=== PATIENT | male | born 1945 | race Caucasian/White ===

== ENCOUNTER → 2018-10-13 12:40 | Outpatient (CLI) | payer MEDICARE, OTHER, SELFPAY ==
--- NOTE | 2018-10-13 | DI.CT.S_ITS ---
PROCEDURE: CT ABDOMEN PELVIS W CON INDICATIONS: Neoplasm of genitourinary organ TECHNIQUE: After the administration of oral and intravenous contrast, 5 mm thick sections acquired from the diaphragms to the symphysis. 5 mm thick coronal and sagittal reformats were performed. For radiation dose reduction, the following was used: automated exposure control, adjustment of mA and/or kV according to patient size. COMPARISON: None. FINDINGS: Image quality: Excellent. ABDOMEN: Lung bases: Lung bases are clear. Heart size is normal. Solid organs: Liver is normal in size and enhancement. Gallbladder appears normal. Biliary system is non-dilated. Pancreas enhances normally. Spleen is normal in size and enhancement. No adrenal nodules. Kidneys are normal in size and enhancement, without hydronephrosis. Peritoneum and bowel: Stomach, small bowel, and colon loops are normal in caliber and wall thickness. No free fluid or air. Nodes and vessels: No retroperitoneal or mesenteric adenopathy. Aorta and inferior vena cava are normal in caliber. Miscellaneous: No ventral hernias. PELVIS: Genitourinary: Bladder wall thickness is normal. Miscellaneous: No inguinal hernias or adenopathy. Bones: There are several sclerotic suspicious bony lesions the most worrisome of which is located within the left iliac bone at the middle third of the left sacroiliac joint, measuring up to 1.5 cm and densely sclerotic. This is best seen on series 2 image 60. Several additional less dense bone lesions are present elsewhere within the pelvis, nonspecific in appearance. No vertebral body compression fractures. IMPRESSION: No adenopathy seen. There is a dense sclerotic 1.5 cm bone lesion within the left iliac bone adjacent to the middle third of the left sacroiliac joint. By appearance this would be worrisome for representing prostate carcinoma metastasis and reactive sclerosis. Recommend nuclear medicine bone scan for further characterization. Dictated by: Homar Sifuentes M.D. on 10/13/2018 at 14:32 Approved by: Homar Sifuentes M.D. on 10/13/2018 at 14:36
== END ==
PROVIDERS: PCP Family Medicine; Visit Provider Urology
DX: D49.59 Neoplasm of unspecified behavior of other genitourinary organ (principal); M89.9 Disorder of bone, unspecified
CPT/HCPCS: 74177; Q9967

== ENCOUNTER → 2018-11-18 08:54 | Outpatient (CLI) | payer MEDICARE, OTHER, SELFPAY ==
--- NOTE | 2018-11-18 | DI.NM.S_ITS ---
PROCEDURE: NM BONE SCAN WHOLE BODY RADIOPHARMACEUTICAL: 21.5 mCi Tc-99m MDP IV. INDICATIONS: PROSTATE CANCER TECHNIQUE: Delayed whole-body scintigrams were obtained approximately 3-4 hours after intravenous injection of radiotracer. Anterior and posterior views were acquired from vertex to feet. Additional left and right oblique views of the pelvis were obtained. COMPARISON: [facility], CT, CT ABDOMEN PELVIS W CON, 10/13/2018, 13:46. FINDINGS: With reference to the prior CT scan in 10/13/[address] finding of ovoid sclerosis within the medullary space of the posterior left iliac bone, at the middle third of the sacroiliac joint axial level. This same area is well-visualized on posterior imaging from the bone scan study, and no corresponding asymmetry is identifiable. Degenerative lower lumbosacral spine and disc disease and facet osteoarthritis is greater on the left than the right by CT scanning and this corresponds with the mild asymmetric increased isotope uptake in the lower lumbosacral spine by the current bone scan. IMPRESSION: No definite metastatic disease is found by nuclear medicine bone scan imaging. As discussed above the degenerative changes at the lower lumbosacral spine are greater on the left than the right corresponding to the mild asymmetric increased isotope deposition in the area of the spine on bone scan. A sharply demarcated area of sclerosis within the posterior left iliac bone adjacent to the sacroiliac joint cannot be identified by bone scanning. This does not entirely exclude the possibility of osteoblastic metastatic disease at that site, however. Continued attention to that area on followup CT scan is recommended. If management would be altered by a definitive diagnosis of osseous metastatic disease CT-guided bone biopsy could be obtained into that area. Dictated by: Homar Sifuentes M.D. on 11/18/2018 at 14:54 Approved by: Homar Sifuentes M.D. on 11/18/2018 at 15:11
== END ==
PROVIDERS: PCP Family Medicine; Visit Provider Urology
DX: C61 Malignant neoplasm of prostate (principal); M47.817 Spondylosis without myelopathy or radiculopathy, lumbosacral region
CPT/HCPCS: 78306; A9503

== ENCOUNTER 2021-02-09 14:14 | Emergency (ER) | payer MEDICARE, OTHER, SELFPAY ==
[2021-02-09] VITALS (14 sets, daily range): BP systolic 120–152; BP diastolic 55–85; PULSE 103–125; RESP 25; TEMP 36.9–39.4; O2SAT 77–99; BMI 29.8
--- NOTE | 2021-02-09 14:45 | DI.RAD.S_ITS ---
PROCEDURE: XR CHEST 1V INDICATIONS: suspected sepsis TECHNIQUE: One view of the chest was acquired. COMPARISON: [facility], CR, XR CHEST 2 VIEWS, 10/05/2018, 10:58. FINDINGS: Surgical changes and devices: None. Lungs and pleura: An incomplete inspiratory result is noted, causing a crowded appearance to the lung markings. No focal infiltrates are seen. No pneumothorax or significant pleural effusions are seen. Mediastinum: Mediastinal contours appear normal. Heart size is normal. Bones and chest wall: No suspicious bony lesions. Age-appropriate bony degenerative changes are seen. Overlying soft tissues appear unremarkable. IMPRESSION: Limited portable chest examination, without a significant cardiopulmonary abnormality identified. If there is clinical concern for a developing pulmonary process, a short-term followup chest series (with PA and lateral views, performed in deep inspiration) is suggested for further evaluation. Dictated by: Chrales Gonzales M.D. on 02/09/2021 at 14:34 Approved by: Charles Gonzales M.D. on 02/09/2021 at 14:34
[2021-02-09] MEDS: SODIUM CHLORIDE 0.9% 1,000 ML 1000 ML IV (15:12)
[2021-02-09 15:31] LABS: Add Manual Diff / Slide Review NO; Basophils Absolute Auto 0 /uL (0-100); Basophils Percent Auto 0.1 % (0-2); Eosinophils Absolute Auto 0 /uL (0-450); Hematocrit 45.7 % (41-53); Hemoglobin 15.4 g/dL (13.5-17.5); Lymphocytes Absolute Auto 500 /uL (1100-4500); Lymphocytes Percent Auto 3.3 % (25-40); Mean Corpuscular HGB Conc 33.7 % (30-36); Mean Corpuscular Hemoglobin 29.1 PG (26-34); Mean Corpuscular Volume 86.5 fL (80-100); Monocytes Absolute Auto 1200 /uL (0-900); Monocytes Percent Auto 8.1 % (3-14); Neutrophils Absolute Auto 12700 /uL (1500-7000); Neutrophils Percent Auto 88.5 % (50-75); Platelet Count 223 X10^3/uL (150-400); Red Blood Cell Count 5.29 X10^6/uL (4.5-5.9); Red Cell Distribution Width 12.9 % (11.6-14.8); White Blood Cell Count 14.3 X10^3/uL (4.5-11.0)
[2021-02-09 15:36] LABS: Lactate (Lactic Acid) 1.3 mmol/L (0.7-2.1)
[2021-02-09 15:38] LABS: Alanine Aminotransferase 18 IU/L (<50); Albumin 4.7 g/dL (3.5-5.0); Albumin Globulin Ratio 1.6 (1.0-2.8); Alkaline Phosphatase 77 U/L (38-126); Aspartate Aminotransferase 21 IU/L (17-59); BUN Creatinine Ratio 12.7 (6-22); Bilirubin Total 1.3 mg/dL (0.2-1.3); Blood Urea Nitrogen 10 mg/dL (9-20); Calcium 8.8 mg/dL (8.4-10.2); Carbon Dioxide 28 mmol/L (22-32); Chloride 99 mmol/L (98-107); Estimated Glomerular Filt Rate > 60.0 mL/min (>60); Glucose 135 mg/dL (80-110); HEMOLYSIS < 15 (0-50); Lipase 39 U/L (23-300); Potassium 3.9 mmol/L (3.4-5.1); Sodium 134 mmol/L (137-145); Total Protein 7.7 g/dL (6.3-8.2)
[2021-02-09 15:40] LABS: COVID19 -Nasal RAPID Negative (Negative)
[2021-02-09 15:54] LABS: Procalcitonin 0.12 ng/mL (<0.5)
--- NOTE | 2021-02-09 16:32 | ED.GENADULT ---
HPI - General Adult General Chief complaint: Fever Stated complaint: Possible shingles on his face Time Seen by Provider: 02/09/21 16:32 Source: patient Mode of arrival: Family Vehicle History of Present Illness HPI narrative: 75-year-old gentleman with a history of hyperlipidemia presents with facial rash and general malaise. He noted that the rash started on his left cheek approximately 72 hours ago has now spread to include both cheeks and is spreading over his nose up into the lower portion of his forehead. Has some minor edema around the eyes he does not report significant fevers, nasal discharge, headache, body aches, chills, vomiting, diarrhea, abdominaPain, palpitations, lower extremity edema. He has not been dizzy nor had any near syncopal episodes. There is no altered mental status Related Data Home Medications Medication Instructions Recorded Confirmed ibuprofen 200 mg capsule 200 mg PO PRN #0 03/10/11 Previous Rx's Medication Instructions Recorded alprazolam 0.25 mg tablet 0 mg PO QDAY #6 tab 12/31/15 atorvastatin 20 mg tablet (Lipitor) 20 mg PO HS #90 tab 05/09/16 azithromycin 250 mg tablet 250 mg PO QDAY #1 pac 05/20/16 (Zithromax) sildenafil (pulm.hypertension) 20 20 mg PO PRN #100 tab 10/31/16 mg tablet cephalexin 500 mg capsule 500 mg PO TID #21 cap 02/09/21 Allergies Allergy/AdvReac Type Severity Reaction Status Date / Time No Known Drug Allergies Allergy Verified 02/09/21 14:44 Review of Systems Review of Systems Narrative: Remainder of complete review of systems is otherwise unremarkable except for that included in the HPI. Patient History Medical History Chicken pox Hearing loss (2009) Measles Mumps Rotator cuff tear, left (01/09/16) Rupture of left long head biceps tendon (01/09/16) Shoulder pain (2011) Subacromial impingement of left shoulder (01/09/16) Surgical History No history of previous surgery (05/04/15) Social History Smoking Status: Never smoker Smoking Status: Never smoker alcohol intake frequency: 0-2 drinks per day Alcohol type: wine Substance Use Type: does not use Exam Narrative Exam Narrative: General: Healthy appearing, in no acute distress. Able to give a complete and coherent history. Well-nourished well-developed HEENT: Moist mucous membranes, normal sclera with reactive pupils, erythematous rash covering the majority of his cheeks nose and spreading up to the forehead consistent with erysipelas. No vesicles, no weeping no obvious abscesses. No periorbital involvement Neck: No JVD, supple, full minor anterior cervical adenopathy Respiratory: Lungs are clear to auscultation, no wheezing no rales no rhonchi. Full and symmetrical air movement Cardiac: Regular rate and rhythm no murmurs no bruits Abdomen: Soft, nontender, good bowel tones, no flank pain Skin: Aside from facial rash remainder of skin is otherwise Warm and dry, Neurologic: Grossly neurologically intact with no obvious asymmetries or abnormalities Extremities: No trauma, well perfused Psych: Cooperative, appropriate insight and affect Initial Vital Signs Initial Vital Signs: Vital Signs Temperature 102.9 F H 02/09/21 14:34 Pulse Rate 125 H 02/09/21 14:34 Respiratory Rate 25 H 02/09/21 14:34 Blood Pressure 135/72 02/09/21 14:34 Pulse Oximetry 97 02/09/21 14:34 Course Orders Ordered: Discontinued Medications Acetaminophen (Acetaminophen 325 Mg Tablet) 975 mg PO NOW ONE Stop: 02/09/21 16:14 Last Admin: 02/09/21 16:34 Dose: 975 mg Documented by: BRENDAN Cefazolin Sodium (Cephalexin 250 Mg Prepack) 1 bottle MISC SEEINSTR ONE Stop: 02/09/21 16:36 Last Admin: 02/09/21 16:42 Dose: 1 bottle Documented by: BRENDAN Sodium Chloride (Normal Saline 0.9%) 1,000 mls @ 1,000 mls/hr IV BOLUS ONE Stop: 02/09/21 15:44 Last Infusion: 02/09/21 16:34 Dose: 0 mls/hr Documented by: Admin: 02/09/21 15:12 Dose: 1,000 mls/hr Documented by: BRENDAN Ceftriaxone Sodium 2,000 mg/ (Sodium Chloride) 100 mls @ 200 mls/hr IV NOW ONE Stop: 02/09/21 16:36 Last Infusion: 02/09/21 17:15 Dose: 0 mls/hr Documented by: Admin: 02/09/21 16:42 Dose: 200 mls/hr Documented by: BRENDAN Vital Signs Vital signs: Vital Signs - 8 hr 02/09/21 14:34 02/09/21 15:07 02/09/21 15:09 Temperature 102.9 F H Pulse Rate 125 H 118 H 108 H Respiratory Rate 25 H Blood Pressure 135/72 122/74 Pulse Oximetry 97 94 98 02/09/21 15:15 02/09/21 15:30 02/09/21 15:45 Temperature 102.9 F H Pulse Rate 106 H 104 H 103 H Respiratory Rate Blood Pressure 131/85 Pulse Oximetry 98 97 99 02/09/21 16:00 Temperature Pulse Rate 110 H Respiratory Rate Blood Pressure 136/80 Pulse Oximetry 77 L Medical Decision Making Lab Data Result diagrams: 02/09/21 15:08 02/09/21 15:08 Labs: Lab Results 02/09/21 02/09/21 02/09/21 Range/Units 14:45 15:08 15:08 WBC 14.3 H (4.5-11.0) X10^3/uL RBC 5.29 (4.5-5.9) X10^6/uL Hgb 15.4 (13.5-17.5) g/dL Hct 45.7 (41-53) % MCV 86.5 (80-100) fL MCH 29.1 (26-34) PG MCHC 33.7 (30-36) % RDW 12.9 (11.6-14.8) % Plt Count 223 (150-400) X10^3/uL Neut % (Auto) 88.5 H (50-75) % Lymph % (Auto) 3.3 L (25-40) % Gilchrist % (Auto) 8.1 (3-14) % Eos % (Auto) 0.0 L (2-4) % Baso % (Auto) 0.1 (0-2) % Neut # (Auto) 56321 H (9676-6400) /uL Lymph # (Auto) 500 L (6628-6122) /uL Gilchrist # (Auto) 1200 H (0-900) /uL Eos # (Auto) 0 (0-450) /uL Baso # (Auto) 0 (0-100) /uL Sodium 134 L (137-145) mmol/L Potassium 3.9 (3.4-5.1) mmol/L Chloride 99 (98-107) mmol/L Carbon Dioxide 28 (22-32) mmol/L BUN 10 (9-20) mg/dL Creatinine 0.79 (0.66-1.25) mg/dL Estimated GFR > 60.0 (>60) mL/min BUN/Creatinine Ratio 12.7 (6-22) Glucose 135 H (80-110) mg/dL Lactate (0.7-2.1) mmol/L Calcium 8.8 (8.4-10.2) mg/dL Total Bilirubin 1.3 (0.2-1.3) mg/dL AST 21 (17-59) IU/L ALT 18 (<50) IU/L Alkaline Phosphatase 77 (38-126) U/L Total Protein 7.7 (6.3-8.2) g/dL Albumin 4.7 (3.5-5.0) g/dL Globulin 3.0 (1.7-4.1) g/dL Albumin/Globulin Ratio 1.6 (1.0-2.8) Lipase 39 (23-300) U/L Procalcitonin 0.12 (<0.5) ng/mL SARS-CoV-2 (PCR) Negative (Negative) 02/09/21 Range/Units 15:08 WBC (4.5-11.0) X10^3/uL RBC (4.5-5.9) X10^6/uL Hgb (13.5-17.5) g/dL Hct (41-53) % MCV (80-100) fL MCH (26-34) PG MCHC (30-36) % RDW (11.6-14.8) % Plt Count (150-400) X10^3/uL Neut % (Auto) (50-75) % Lymph % (Auto) (25-40) % Gilchrist % (Auto) (3-14) % Eos % (Auto) (2-4) % Baso % (Auto) (0-2) % Neut # (Auto) (0660-5815) /uL Lymph # (Auto) (3353-1738) /uL Gilchrist # (Auto) (0-900) /uL Eos # (Auto) (0-450) /uL Baso # (Auto) (0-100) /uL Sodium (137-145) mmol/L Potassium (3.4-5.1) mmol/L Chloride (98-107) mmol/L Carbon Dioxide (22-32) mmol/L BUN (9-20) mg/dL Creatinine (0.66-1.25) mg/dL Estimated GFR (>60) mL/min BUN/Creatinine Ratio (6-22) Glucose (80-110) mg/dL Lactate 1.3 (0.7-2.1) mmol/L Calcium (8.4-10.2) mg/dL Total Bilirubin (0.2-1.3) mg/dL AST (17-59) IU/L ALT (<50) IU/L Alkaline Phosphatase (38-126) U/L Total Protein (6.3-8.2) g/dL Albumin (3.5-5.0) g/dL Globulin (1.7-4.1) g/dL Albumin/Globulin Ratio (1.0-2.8) Lipase (23-300) U/L Procalcitonin (<0.5) ng/mL SARS-CoV-2 (PCR) (Negative) Imaging Data Chest x-ray: Radiologist's Impression: FINDINGS:? ? Surgical changes and devices:? None.? ? Lungs and pleura:? An incomplete inspiratory result is noted, causing a crowded appearance to the lung markings.? No focal infiltrates are seen.? No pneumothorax or significant pleural effusions are seen. ? ? Mediastinum:? Mediastinal contours appear normal.? Heart size is normal.? ? Bones and chest wall:? No suspicious bony lesions.? Age-appropriate bony degenerative changes are seen.? Overlying soft tissues appear unremarkable.? ? ? IMPRESSION:? ? Limited portable chest examination, without a significant cardiopulmonary abnormality identified.? ? If there is clinical concern for a developing pulmonary process, a short-term followup chest series (with PA and lateral views, performed in deep inspiration) is suggested for further evaluation. ? ? Dictated by: Charles Gonzales M.D. on 02/09/2021 at 14:34 ? ? MDM Narrative Medical decision making narrative: 75-year-old gentleman today presents with facial rash absolute consistent with erysipelas. There is no sign of abscess, deeper tissue infection or periorbital involvement. No evidence of sepsis. Given 2 g of IV ceftriaxone in the emergency department a prescription for cephalexin to begin tomorrow. Because he will be returning to [facility] and what have access to pharmacy he is given a pre packed to provide him at 12:00 p.m. bridge until antibiotics are available. Anticipatory guidance regarding resolution of symptoms and anticipated course of illness are reviewed with both he and his . Questions are answered and he is safe for home discharge Discharge Plan Departure Patient Disposition: Home Clinical Impression: Erysipelas Instructions: DI for Erysipelas Activity Restrictions/Additional Instructions: Thank you for coming in today The infection affecting her face should resolve nicely with antibiotics. The blood work done in the emergency department suggest that you do not have overwhelming infection or sepsis. This is not shingles/zoster. Your given a dose of antibiotics starting at 4:30 in the afternoon, 2 g of IV ceftriaxone. You need to continue 500 mg of cephalexin 3 times a day. Please take 2 of the 250 mg pills around noon tomorrow, and another 2 at bedtime. 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 If you find that you are getting worse please return to the ER and we are happy to help Prescriptions: New cephalexin 500 mg capsule 500 mg PO TID Qty: 21 0RF No Action ibuprofen 200 MG capsule 200 mg PO PRN Qty: 0 0RF alprazolam 0.25 MG tablet 0 mg PO QDAY Qty: 6 0RF atorvastatin [Lipitor] 20 MG tablet 20 mg PO HS Qty: 90 1RF azithromycin [Zithromax] 250 MG tablet 250 mg PO QDAY Qty: 1 0RF sildenafil (pulm.hypertension) 20 MG tablet 20 mg PO PRN Qty: 100 0RF Referrals: Prince Padgett MD [Primary Care Provider] -
[2021-02-09] MEDS: ACETAMINOPHEN 325 MG TABLET 975 MG PO (16:34)
[2021-02-09] MEDS: cefTRIAXone 2,000 MG in SODIUM CHLORIDE 0.9% 100 ML 200 ML IV (16:42)
[2021-02-09] MEDS: cephALEXin 250 MG PREPACK 1 BOTTLE MISC (16:42)
== END 2021-02-09 17:18 | disposition home or self-care (01) ==
PROVIDERS: Emergency Provider Emergency Medicine; PCP Family Medicine
DX: A46 Erysipelas (principal); Z20.822 Contact with and (suspected) exposure to COVID-19
CPT/HCPCS: 36415; 71045; 80053; 83605; 83690; 84145; 85025; 87040; 87635; 96361; 96365; 99284; C9803; J0696

== ENCOUNTER 2021-03-27 12:41 | Day surgery (SDC) | payer MEDICARE, OTHER, SELFPAY ==
--- NOTE | 2021-03-26 19:11 | PM.PREOP ---
Pre-operative Note COVID-19 COVID-19 status: Negative Criteria for continued procedure: Expected advancement of disease process, Possibility delay results in more complex future surgery or treatment, Increased loss of function, Delay expected to result in less-positive ultimate med/surg outcome and Non-surgical alternatives not available or appropriate per current SOC Interval Note History & Physical reviewed/Exam performed by Physician: Yes Changes to H&P: No
--- NOTE | 2021-03-27 08:27 | PM.OP.1 ---
Operative Date/Time/Diagnoses Date of procedure: 03/27/21 Time of procedure: 14:15 Procedure & Clinicians Procedure: Preoperative diagnoses: 1. Significant right cortical and Nuclear sclerotic cataract 2. Astigmatism which is to be corrected with a toric intraocular lens implant. 3. Previous excision of large pterygium multiple times 4. Risk of dry eye syndrome 5. History of prostate cancer removed with surgery denies Flomax or similar medications. Postoperative diagnoses: 1. Right Cataract removal with phacoemulsification with toric posterior chamber intraocular lens implant placed. Procedure: Phacoemulsification with posterior chamber toric intraocular lens implant. Surgeon: Donna Batres MD Complications: None Specimen: None Implant: [id number] Calvin 179 Blood loss: None Anesthesia: Retrobulbar with monitored standby Description of procedure: Patient presents with a complaint of decreased vision due to cataract which is affecting activities of daily living especially night driving. The patient wants surgery to improve vision and astigmatism. He has a large amount of astigmatism residual to previous multiple treatments for pterygia. He also now has significant glare causing him burst and halos with driving and reading. patient understands the extra risk of surgery during the COVID-19 epidemic and wishes to proceed. The patient has tested negative for active virus within 72 hours of the procedure. His pupil does not dilate extremely well and is possible that he has had of prostatic sympathomimetic drugs in the past without his knowledge. 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 The patient was taken to the operating room and proparacaine drops placed. Indelible ink dowling were placed at the 90 and 180 degree meridian. The patient was placed on the operating room table and given IV sedation. A retrobulbar block insert consisting of 6 cc of 2% xylocaine without epinephrine mixed half and half with 0.5% Marcaine with 1 cc of hyaluronidase added is placed between the medial and lateral 1/3 of the inferior orbital rim. The eye is manually massaged for 30 sec, prepped using Betadine solution, and draped in the usual sterile fashion. Temporal approach was made, a 1 mm side-port incision was made 90? from the proposed corneal wound. Phenylephrine 1.5% mixed with 1% xylocaine 0.2 cc was placed into the anterior chamber. This was allowed to work for 1 minute to improve pupillary dilation and tone. An air bubble was then placed in vision blue dye was placed in the anterior chamber to lightly paint the anterior capsule. followed by Healon was then placed. A 2.6 mm clear incision with a 2.6 mm blade was placed at the 170 degree meridian. A 360 degree capsulorrhexis style capsulotomy was then performed with a cystitome needle on a Healon greatly aided by the capsular dye. Hydrodelineation and hydrodissection were performed. The phacoemulsification unit is introduced, and sculpting used to groove the central lens. It is then removed in chopping mode. Epi nucleus is removed with epinuclear mode and irrigation aspiration was used to remove the peripheral cortex. The posterior capsule is polished. The intraocular lens is selected, inspected, power confirmed, and placed in the posterior chamber at the desired meridian of 179?. The pupil was not constricted. The wound was stromally hydrated and tested for leaks, there was none and it was left sutureless. Vigamox 0.1 cc was placed into the anterior chamber. Kenalog 0.2 cc was placed in the superior subconjunctival space. A drop of antibiotic and was placed and the eye was patched and shielded. The patient was stable and returned to the recovery room in excellent condition. Dictated by: Donna Batres MD Copy to: [facility] Same procedure as scheduled: Yes
[2021-03-27] MEDS: PROPARACAINE 0.5% OPHTH SOL 2 DROPS EYE-OP (13:04)
[2021-03-27] MEDS: CATARACT EYE COMPOUND (10 DROPS/SYRINGE) 3 DROPS EYE-OP (13:05)
[2021-03-27 13:07] VITALS: BP 127/81; PULSE 98; RESP 18; TEMP 36.6; O2SAT 98; BMI 29.5
--- NOTE | 2021-03-27 13:28 | SUR.OPER ---
Supine on eye stretcher, head on extension cradle secured with tape. Arms tucked at sides with blanket. Pillow under knees.
--- NOTE | 2021-03-27 14:32 | SUR.OPER ---
RIGHT EAR HEARING AID REMOVED, PLACED IN LABELED CUP AND TRANSFERRED TO [facility] WITH PATIENT
[2021-03-27] MEDS: PHENYLEPHRINE/LIDOCAINE VIAL (OR) 0.2 ML EYE-OP (14:34)
[2021-03-27] MEDS: MOXIFLOXACIN INJ 4 MG/0.8 ML VIAL 0.5 MG EYE-OP (14:34)
[2021-03-27] MEDS: HYALURONATE SODIUM 30 MG-10 MG/ML SYRINGES 1 BOX INTRAOCULA (14:34)
[2021-03-27] MEDS: LIDOCAINE 2% 4 ML, BUPIVACAINE 0.5% (PF) 4 ML, HYALURONIDASE 150 UNIT INJ (14:36)
[2021-03-27] MEDS: TRIAMCINOLONE 50 MG/5 ML VIAL INJ (14:36)
[2021-03-27] MEDS: BALANCED SALT IRRIG SOLN NO.2 500 ML, EPINEPHrine 1 MG IRR (14:37)
[2021-03-27] MEDS: TRYPAN BLUE 0.5 ML SYRINGE INJ (14:38)
[2021-03-27] MEDS: ERYTHROMYCIN OPHTH 1 GM OINT 1 APPLIC EYE-RIGHT (14:38)
[2021-03-27 15:00] VITALS: BP 118/75; PULSE 80; RESP 16; TEMP 36.3; O2SAT 96
--- NOTE | 2021-03-27 15:06 | SUR.PHASEII ---
Message left with for transport. She is in [place] for an appointment. Patient states I'm fine, I'll just sit here and drink coffee.
[2021-03-27 15:37] VITALS: BP 118/73; PULSE 80; RESP 16; TEMP 36.5; O2SAT 97
== END 2021-03-27 15:46 | disposition home or self-care (01) ==
LOC: OR 12:43
PROVIDERS: PCP Family Medicine; Referring Provider Ophthalmology; Visit Provider Ophthalmology
PROC: (CPT 66984; principal; 2021-03-27 14:15)
DX: H25.811 Combined forms of age-related cataract, right eye (principal); H52.201 Unspecified astigmatism, right eye
CPT/HCPCS: 66984; J0171; J2250; J3301; J3470; V2787

== ENCOUNTER 2021-04-22 11:44 | Day surgery (SDC) | payer MEDICARE, OTHER, SELFPAY ==
--- NOTE | 2021-04-09 19:12 | PM.PREOP ---
Pre-operative Note COVID-19 COVID-19 status: Negative Criteria for continued procedure: Expected advancement of disease process, Possibility delay results in more complex future surgery or treatment, Increased loss of function, Delay expected to result in less-positive ultimate med/surg outcome and Non-surgical alternatives not available or appropriate per current SOC Interval Note History & Physical reviewed/Exam performed by Physician: Yes Changes to H&P: Yes H&P completed within 30 days and has changed as indicated here:: Patient was diagnosed last week with atrial fibrillation and had his carpal tunnel surgery which was planned postponed. He has no symptoms and is due to start a short course of Eliquis tomorrow and see cardiology in 1-2 weeks. His primary care so he could continue with surgery as planned.
--- NOTE | 2021-04-10 08:13 | P.OP_ITS ---
Operative Date/Time/Diagnoses Date of procedure: 04/22/21 Time of procedure: 13:15 Procedure & Clinicians Procedure: Preoperative diagnoses: 1. Left nuclear sclerotic and cortical cataract. 2. History of extensive pterygium removal 3. 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 Newly diagnosed atrial fibrillation without symptoms. Postoperative diagnoses: 1. Cataract removed by phacoemulsification with placement of posterior chamber intraocular lens. Procedure: Phacoemulsification with posterior chamber intraocular lens implant Surgeon: Donna Batres MD Complications: None Specimen: None Implant: DIBOO+25.0 Blood loss: None Anesthesia: Retrobulbar with monitored standby Description of procedure: Patient presents with a complaint of decreased vision due to cataract which is affecting activities of daily living with problems with night driving. He has had significant pterygium removal but does not have significant astigmatism in this eye. He is extra risk of dry eye syndrome. He is in balance since his risk cataract surgery which is causing risk of falling and wants to proceed cataract surgery in this eye as soon as possible. He was originally scheduled for cataract surgery April but due to the unavailability of needed intraoperative medications the case was postponed until today. These medications are now available and he is eager to proceeed..he patient wants surgery to improve vision. The patient understands the extra risk of surgery during the COVID-19 epidemic and wishes to proceed. He has tested negative for active virus within 72 hours of the procedure. He did have a tendency for floppy iris his last surgery and extra precautions will be taken. The patient was taken to the operating room and given IV sedation. A retrobulbar block consisting of 6 cc of 2% xylocaine without epinephrine mixed half and half with 0.5% Marcaine with 1 cc of hyaluronidase added is placed between the medial and lateral 1/3 of the inferior orbital rim. The eye is manually massaged for 30 sec, prepped using Betadine solution, and draped in the usual sterile fashion. Temporal approach was made, a 1 mm side-port incision was made 90? from the proposed clear corneal incision position. Phenylephrine 1.5% mixed with 1% xy locaine 0.2 cc was placed into the anterior chamber. To improve visibility an air bubble was placed followed by vision blue dye to paint the posterior capsule. The excess dye was then removed with BSS by Healon was then placed. A 2.6 mm clear incision with a 2.6 mm blade was placed. A 360 degree capsulorrhexis style capsulotomy was then performed with a cystitome needle on a Healon aided by the capsular dye Hydrodelineation and hydrodissection were performed. The phacoemulsification unit is introduced, and sculpting notice used to groove the central lens. It is then removed in chopping mode. Epi nucleus is removed with epinuclear mode and irrigation aspiration was used to remove the peripheral cortex. The posterior capsule is polished. The iris had a tendency to prolapse that stayed in position. intraocular lens is selected, inspected, power confirmed, and placed in the posterior chamber. The wound was stromally hydrated and tested for leaks, there was none and it was left sutureless. Intracameral moxifloxacin 0.1 cc was placed into the anterior chamber. Kenalog 0.2 cc was placed in the superior subconjunctival space. A drop of antibiotic and was placed and the eye was patched and shielded. The patient was stable and returned to the recovery room in excellent condition. He was noted to be in atrial fibrillation throughout the case and a strip was given to him as he is about to undergo treatment for this new condition. He remained asymptomatic during the entire procedure with a heart rate in the 80s. He will start Eliquis tomorrow morning. Dictated by: Donna Batres MD Copy to: [facility] Same procedure as scheduled: Yes
--- NOTE | 2021-04-10 11:17 | SUR.PREOP ---
Patient surgery cancelled. Pt called in informed. Dr Batres's office to call to reschedule.
[2021-04-22] MEDS: CATARACT EYE COMPOUND (10 DROPS/SYRINGE) 3 DROPS EYE-OP (12:00)
[2021-04-22] MEDS: PROPARACAINE 0.5% OPHTH SOL 2 DROPS EYE-OP (12:00)
[2021-04-22 12:07] VITALS: BP 137/82; PULSE 80; RESP 18; TEMP 36.2; O2SAT 997
[2021-04-22 12:55] LABS: COVID19 -Nasal RAPID Negative (Negative)
[2021-04-22] MEDS: MOXIFLOXACIN INJ 4 MG/0.8 ML VIAL 0.5 MG EYE-OP (14:08)
[2021-04-22] MEDS: HYALURONATE SODIUM 30 MG-10 MG/ML SYRINGES 1 BOX INTRAOCULA (14:08)
[2021-04-22] MEDS: ERYTHROMYCIN OPHTH 1 GM OINT 1 APPLIC EYE-LEFT (14:08)
[2021-04-22] MEDS: TRIAMCINOLONE 50 MG/5 ML VIAL INJ (14:10)
[2021-04-22] MEDS: PHENYLEPHRINE/LIDOCAINE VIAL (OR) 0.2 ML EYE-OP (14:10)
[2021-04-22] MEDS: TRYPAN BLUE 0.5 ML SYRINGE INJ (14:11)
[2021-04-22] MEDS: LIDOCAINE 2% 4 ML, BUPIVACAINE 0.5% (PF) 4 ML, HYALURONIDASE 150 UNIT INJ (14:11)
[2021-04-22] MEDS: BALANCED SALT IRRIG SOLN NO.2 500 ML, EPINEPHrine 1 MG IRR (14:11)
[2021-04-22 14:42] VITALS: BP 124/84; PULSE 78; RESP 16; TEMP 36.3; O2SAT 97
== END 2021-04-22 15:01 | disposition home or self-care (01) ==
LOC: OR 11:46
PROVIDERS: PCP Nurse Practitioner Family; Referring Provider Ophthalmology; Visit Provider Ophthalmology
PROC: (CPT 66984; principal; 2021-04-22 13:15)
DX: H25.812 Combined forms of age-related cataract, left eye (principal); Z20.822 Contact with and (suspected) exposure to COVID-19
CPT/HCPCS: 66984; 87635; J0171; J2250; J2704; J3301; J3470

== ENCOUNTER 2024-08-31 07:34 | Emergency (ER) | payer MEDICARE, OTHER, SELFPAY ==
[2024-08-31] VITALS (23 sets, daily range): BP systolic 112–153; BP diastolic 60–88; PULSE 54–77; RESP 14–27; TEMP 36.8; O2SAT 94–99; BMI 30.8
--- NOTE | 2024-08-31 07:47 | EKG_ITS ---
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
--- NOTE | 2024-08-31 08:07 | DI.CT.S_ITS ---
PROCEDURE: CT ANGIO HEAD AND NECK INDICATIONS: tia TECHNIQUE: After the administration of intravenous contrast, 1 mm thick sections acquired from the aortic arch through the [place] of [place]. 3-dimensional cbtfsom-oxxdedkop-ewpfumaqse (MIP) and/or volume rendering reformats were acquired of the central intracranial vasculature and neck separately. For radiation dose reduction, the following was used: automated exposure control, adjustment of mA and/or kV according to patient size. COMPARISON: None. FINDINGS: Image quality: Diagnostic HEAD ANGIOGRAPHY: Anterior circulation: ICAs: Mild calcifications of the cavernous carotids ACAs: Patent MCAs: Patent AComm: No aneurysm Venous sinuses: Patent Posterior circulation: Dominance: Slightly left dominant Vertebral arteries: Patent. 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 Oval outpouching is seen at the left carotid origin measuring 9 x 6 mm (3/150 ) with a wide neck. ICAs: No stenosis, occlusion or aneurysm. ECAs: Origins are patent. Vertebral arteries: Patent Soft tissues: No significant mass, aneurysm, or lymphadenopathy Lung apices: No pneumothorax Bones: No acute or suspicious abnormality. Degenerative changes are seen. IMPRESSION: No large vessel occlusion or high-grade stenosis. There is an oval outpouching arising from the left carotid origin measuring 9 x 6 mm (3/150), with a wide neck. Consider MRI if there is high concern for infarction Any quantitative measurements of stenosis were performed using NASCET criteria. Dictated by: Shreyas Rodriguez M.D. on 08/31/2024 at 9:47 Approved by: Shreyas Rodriguez M.D. on 08/31/2024 at 9:55
--- NOTE | 2024-08-31 08:07 | DI.CT.S_ITS ---
PROCEDURE: CT HEAD/BRAIN WO CON INDICATIONS: tia TECHNIQUE: Noncontrast 4.5 mm thick angled axial sections acquired from the foramen magnum to the vertex, with coronal and sagittal reformats. For radiation dose reduction, the following was used: automated exposure control, adjustment of mA and/or kV according to patient size. COMPARISON: None. FINDINGS: Image quality: Diagnostic CSF spaces: Basal cisterns are patent. Lateral ventricles are symmetric. Volume: Vascular calcifications. 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 Volume loss is present. These findings are moderate Brain: No intracranial hemorrhage. Tamez-white differentiation is grossly maintained. Craniofacial structures: No significant paranasal sinus opacity. IMPRESSION: No acute intracranial pathology. Consider MRI if there is high concern for infarction. Dictated by: Shreyas Rodriguez M.D. on 08/31/2024 at 9:46 Approved by: Shreyas Rodriguez M.D. on 08/31/2024 at 9:47
--- NOTE | 2024-08-31 08:10 | ED.NEUROSD ---
HPI - Neuro Symptoms/Deficit General Chief Complaint: Neuro Symptoms/Deficit Stated Complaint: Per Patient had possible TIA Yesterday Time Seen by Provider: 08/31/24 07:44 Source: patient Mode of arrival: Ambulatory History of Present Illness HPI Narrative: This is a 79-year-old male with a history of paroxysmal atrial fibrillation status post ablation in on Eliquis and a history of hyperlipidemia who presents concerned about a TIA. Patient says that yesterday he was seated at a restaurant turned his head around and when he turned back felt confused and had difficulty with word finding for 2-3 seconds. This was not associated with headache weakness or sensory deficits he has not had similar symptoms in the past does not have a history of stroke in the past. He is asymptomatic today. Patient is a nonsmoker with no history of hypertension or elevated cholesterol. Does not believe that he has had an echocardiogram recently but does tell me that he has been told he has a heart murmur before. On Anticoagulants: Yes (eliquis) Related Data Home Medications ?Medication ?Instructions ?Recorded ?Confirmed apixaban 5 mg tablet (Eliquis) 5 mg PO BID 08/31/24 08/31/24 Previous Rx's ?Medication ?Instructions ?Recorded atorvastatin 20 mg tablet (Lipitor) 20 mg PO HS #90 tabs 05/09/16 Allergies Allergy/AdvReac Type Severity Reaction Status Date / Time No Known Drug Allergies Allergy Verified 08/31/24 07:52 Review of Systems Hematologic/Lymphatic On Anticoagulants: Yes (eliquis) Patient History Medical History Chicken pox Hearing loss (2009) Measles Mumps Rotator cuff tear, left (01/09/16) Rupture of left long head biceps tendon (01/09/16) Shoulder pain (2011) Subacromial impingement of left shoulder (01/09/16) Surgical History No history of previous surgery (05/04/15) Social History household members: spouse Smoking Status: Never smoker Smoking Status: Never smoker alcohol intake frequency: 0-2 drinks per day Alcohol type: wine Exam Initial Vital Signs Initial Vital Signs: Vital Signs Temperature 98.3 F 08/31/24 07:43 Pulse Rate 77 08/31/24 07:43 Respiratory Rate 16 08/31/24 07:43 Blood Pressure 153/75 H 08/31/24 07:43 Pulse Oximetry 98 08/31/24 07:43 Oxygen Delivery Method Room Air 08/31/24 07:43 vital signs are reviewed Const General: cooperative and No acute distress HENMT Head: normocephalic and atraumatic Face and sinus: face symmetric Mouth: moist mucous membranes Eyes Pupils: PERRL EOM: EOM intact bilaterally Neck Neck: normal visual inspection, supple and No JVD Chest Chest: normal inspection of the chest Resp Effort & Inspection: normal respiratory effort and able to speak in complete sentences Auscultation: clear to auscultation bilaterally Cardio Rate: regular rate Rhythm: regular rhythm Heart Sounds: murmur (Systolic murmur) Skin General: no rashes or lesions noted and warm Neuro General: patient alert, patient oriented x3 and moves all extremities Cranial Nerves: CN's II-XI intact bilaterally Cognition: normal cognition Speech: speech normal Motor: muscle tone normal throughout, strength 5/5 throughout and no movement abnormalities noted Sensory Exam: no sensory deficits noted Coordination: pzivfk-lf-yovy test normal Psych Appearance: grossly normal Course Orders Ordered: ED Orders 08/31/24 08:07 CT angio head and neck Stat CT head/brain wo con Stat EKG-12 Lead Stat 08/31/24 08:10 EC echo doppler complete Stat 08/31/24 08:37 COVID19 -Nasal RAPID Stat 08/31/24 09:09 Urine Drug Screen, Rapid Stat 08/31/24 09:53 MR head/brain wo con Stat Consultations Consultation #1: Reviewed imaging with Dr. Castaneda, [facility] vascular surgery. He does not appreciate any concerning abnormality, notes a little bit of plaque in the artery at that point. Recommends a follow up ultrasound which can be done as an outpatient Vital Signs Vital signs: Vital Signs - 8 hr 08/31/24 09:00 08/31/24 09:01 08/31/24 09:01 Pulse Rate 66 65 Respiratory Rate Blood Pressure 128/88 Pulse Oximetry 97 96 08/31/24 09:09 08/31/24 09:09 08/31/24 09:30 Pulse Rate 63 63 Respiratory Rate 20 24 Blood Pressure 139/71 Pulse Oximetry 97 99 08/31/24 09:30 08/31/24 10:00 08/31/24 10:00 Pulse Rate 58 L Respiratory Rate 14 Blood Pressure 125/72 112/68 Pulse Oximetry 98 08/31/24 10:30 08/31/24 10:33 08/31/24 10:33 Pulse Rate 70 59 L Respiratory Rate 23 Blood Pressure 138/65 Pulse Oximetry 97 97 08/31/24 11:00 08/31/24 11:00 08/31/24 11:30 Pulse Rate 57 L 55 L Respiratory Rate 18 16 Blood Pressure 118/62 Pulse Oximetry 97 98 08/31/24 11:30 08/31/24 12:00 08/31/24 12:00 Pulse Rate 56 L Respiratory Rate 24 Blood Pressure 124/60 115/73 Pulse Oximetry 97 08/31/24 12:30 08/31/24 12:31 08/31/24 12:31 Pulse Rate 54 L 57 L Respiratory Rate 24 20 Blood Pressure 138/68 Pulse Oximetry 97 97 08/31/24 13:00 08/31/24 13:00 08/31/24 13:30 Pulse Rate 57 L Respiratory Rate 20 Blood Pressure 136/74 124/66 Pulse Oximetry 96 08/31/24 13:30 08/31/24 14:00 08/31/24 14:00 Pulse Rate 56 L 57 L Respiratory Rate 17 15 Blood Pressure 116/60 Pulse Oximetry 98 94 08/31/24 14:30 08/31/24 14:30 08/31/24 15:00 Pulse Rate 59 L Respiratory Rate 18 Blood Pressure 133/69 141/74 H Pulse Oximetry 97 08/31/24 15:00 08/31/24 15:30 08/31/24 15:30 Pulse Rate 55 L 65 Respiratory Rate 16 23 Blood Pressure 124/65 Pulse Oximetry 97 96 MDM - Neuro Symptoms/Deficit Lab Data Lab results narrative: CBC with diff and CMP are unremarkable. Troponin is normal 08/31/24 07:44 08/31/24 07:44 Labs: Lab Results 08/31/24 08/31/24 08/31/24 Range/Units 07:42 07:44 08:37 WBC 7.3 (4.5-11.0) X10^3/uL RBC 5.15 (4.5-5.9) X10^6/uL Hgb 14.8 (13.5-17.5) g/dL Hct 43.0 (41-53) % MCV 83.4 (80-100) fL MCH 28.7 (26-34) PG MCHC 34.5 (30-36) % RDW 13.3 (11.6-14.8) % Plt Count 241 (150-400) X10^3/uL Neut % (Auto) 61.6 (50-75) % Lymph % (Auto) 25.7 (25-40) % [place] % (Auto) 10.5 (3-14) % Eos % (Auto) 1.8 L (2-4) % Baso % (Auto) 0.4 (0-2) % Neut # (Auto) 4500 (9044-8389) /uL Lymph # (Auto) 1900 (7007-1143) /uL [place] # (Auto) 800 (0-900) /uL Eos # (Auto) 100 (0-450) /uL Baso # (Auto) 0 (0-100) /uL PT 14.1 H (9.4-12.5) SECONDS INR 1.2 (0.9-1.3) APTT 34 (25.1-36.5) SECONDS Sodium 138 (137-145) mmol/L Potassium 4.1 (3.4-5.1) mmol/L Chloride 106 (98-107) mmol/L Carbon Dioxide 25 (22-32) mmol/L BUN 11 (9-20) mg/dL Creatinine 0.72 (0.66-1.25) mg/dL Estimated GFR > 60 (>60) mL/min BUN/Creatinine Ratio 15.3 (6-22) Glucose 110 H (70-99) mg/dL POC Whole Bld Glucose 108 H (70-99) mg/dL Calcium 8.9 (8.4-10.2) mg/dL Total Bilirubin 1.1 (0.2-1.3) mg/dL AST 29 (17-59) IU/L ALT 21 (<50) IU/L Alkaline Phosphatase 93 (38-126) U/L Total Creatine Kinase 177 H (55-170) U/L Troponin I < 0.012 (0.01-0.034) ng/mL Total Protein 6.7 (6.3-8.2) g/dL Albumin 4.4 (3.5-5.0) g/dL Globulin 2.3 (1.7-4.1) g/dL Albumin/Globulin Ratio 1.9 (1.0-2.8) U Opiates 300ng/mL cut (Negative) Ur Oxycodone Screen (Negative) Urine Methadone Screen (Negative) Ur Barbiturates Screen (Negative) U Tricyclic Antidepress (Negative) Ur Phencyclidine Scrn (Negative) Ur Amphetamines Screen (Negative) U Methamphetamines Scrn (Negative) Ur MDMA Scrn (Ecstasy) (Negative) U Benzodiazepines Scrn (Negative) Urine Cocaine Screen (Negative) U Marijuana (THC) Screen (Negative) Urine pH (Normal) Urine Specific [place] (Normal) Ethyl Alcohol < 10 (<10) mg/dL Ur Creatinine (Normal) SARS-CoV-2 (PCR) Negative (Negative) 08/31/24 Range/Units 09:09 WBC (4.5-11.0) X10^3/uL RBC (4.5-5.9) X10^6/uL Hgb (13.5-17.5) g/dL Hct (41-53) % MCV (80-100) fL MCH (26-34) PG MCHC (30-36) % RDW (11.6-14.8) % Plt Count (150-400) X10^3/uL Neut % (Auto) (50-75) % Lymph % (Auto) (25-40) % [place] % (Auto) (3-14) % Eos % (Auto) (2-4) % Baso % (Auto) (0-2) % Neut # (Auto) (8521-4106) /uL Lymph # (Auto) (5898-4617) /uL [place] # (Auto) (0-900) /uL Eos # (Auto) (0-450) /uL Baso # (Auto) (0-100) /uL PT (9.4-12.5) SECONDS INR (0.9-1.3) APTT (25.1-36.5) SECONDS Sodium (137-145) mmol/L Potassium (3.4-5.1) mmol/L Chloride (98-107) mmol/L Carbon Dioxide (22-32) mmol/L BUN (9-20) mg/dL Creatinine (0.66-1.25) mg/dL Estimated GFR (>60) mL/min BUN/Creatinine Ratio (6-22) Glucose (70-99) mg/dL POC Whole Bld Glucose (70-99) mg/dL Calcium (8.4-10.2) mg/dL Total Bilirubin (0.2-1.3) mg/dL AST (17-59) IU/L ALT (<50) IU/L Alkaline Phosphatase (38-126) U/L Total Creatine Kinase (55-170) U/L Troponin I (0.01-0.034) ng/mL Total Protein (6.3-8.2) g/dL Albumin (3.5-5.0) g/dL Globulin (1.7-4.1) g/dL Albumin/Globulin Ratio (1.0-2.8) U Opiates 300ng/mL cut Negative (Negative) Ur Oxycodone Screen Negative (Negative) Urine Methadone Screen Negative (Negative) Ur Barbiturates Screen Negative (Negative) U Tricyclic Antidepress Negative (Negative) Ur Phencyclidine Scrn Negative (Negative) Ur Amphetamines Screen Negative (Negative) U Methamphetamines Scrn Negative (Negative) Ur MDMA Scrn (Ecstasy) Negative (Negative) U Benzodiazepines Scrn Negative (Negative) Urine Cocaine Screen Negative (Negative) U Marijuana (THC) Screen Negative (Negative) Urine pH Normal (Normal) Urine Specific [place] Normal (Normal) Ethyl Alcohol (<10) mg/dL Ur Creatinine Normal (Normal) SARS-CoV-2 (PCR) (Negative) Urine Dip Bedside Urine Glucose Negative Bedside Urine Bilirubin - Negative Bedside Urine Ketone - Negative Urine Specific [place] 1.010 Bedside Urine Occult Blood - Negative Bedside Urine pH 7.0 Bedside Urine Protein - Negative Bedside Urine Urobilinogen - Negative Bedside Urine Nitrite - Negative Bedside Urine Leukocytes - Negative Esterase Imaging Data CT angio head and neck: Radiologist's Impression: [address] [address] [address] Scan Report Signed Patient: Cas Mark MR#: [id number] : 1945 Acct:[id number] Age/Sex: 79 / M Date of Service: 08/31/24 Loc: ED Accession Number: [id number] Procedure: CT angio head and neck Ordering Provider: Kailee Edmondson MD PROCEDURE: CT ANGIO HEAD AND NECK INDICATIONS: tia TECHNIQUE: After the administration of intravenous contrast, 1 mm thick sections acquired from the aortic arch through the [place]. 3-dimensional zcgjcvx-nuhwyhnum-pqacmohesz (MIP) and/or volume rendering reformats were acquired of the central intracranial vasculature and neck separately. For radiation dose reduction, the following was used: automated exposure control, adjustment of mA and/or kV according to patient size. COMPARISON: None. FINDINGS: Image quality: Diagnostic HEAD ANGIOGRAPHY: Anterior circulation: ICAs: Mild calcifications of the cavernous carotids ACAs: Patent MCAs: Patent AComm: No aneurysm Venous sinuses: Patent Posterior circulation: Dominance: Slightly left dominant Vertebral arteries: Patent. 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 Oval outpouching is seen at the left carotid origin measuring 9 x 6 mm (3/150 ) with a wide neck. ICAs: No stenosis, occlusion or aneurysm. ECAs: Origins are patent. Vertebral arteries: Patent Soft tissues: No significant mass, aneurysm, or lymphadenopathy Lung apices: No pneumothorax Bones: No acute or suspicious abnormality. Degenerative changes are seen. IMPRESSION: No large vessel occlusion or high-grade stenosis. There is an oval outpouching arising from the left carotid origin measuring 9 x 6 mm (3/150), with a wide neck. Consider MRI if there is high concern for infarction Any quantitative measurements of stenosis were performed using NASCET criteria. Dictated by: Shreyas Rodriguez M.D. on 08/31/2024 at 9:47 Approved by: Shreyas Rodriguez M.D. on 08/31/2024 at 9:55 Echocardiogram: Radiologist's Impression: [place] +---------+ [facility] : : [address] [place] [address] : : [place] : : [id number] : : Phone: [phone] Echocardiogram Report + + :Name: CAS MARK Study Date: 08/31/2024 Height: 69 in : :[facility] ReadingLocation: Weight: 209 lb : : Gender: Male BSA: 2.1 m2 : :: 1945 Age: 79 yrs BP: 134/74 mmHg: :Reason For Study: TIA, HEART MURMUR : :Ordering Physician: DELVIS, : :KAILEE Performed By: Melida Lenz : :Referring: KAILEE EDMONDSON : + + Interpretation Summary Normal biventricular size and systolic function. LVEF is 60 to 65%. Left atrium is mildly dilated. There is mild aortic valve stenosis present. Other findings as below. No previous echo images are available for comparison. Mild aortic stenosis likely represents heart murmur. Recommend repeat TTE in 3 years. Procedure: A two-dimensional transthoracic echocardiogram with color flow and Doppler was performed. The study quality was technically adequate. There is no prior echocardiogram noted for this patient. The patient was in sinus rhythm with heart rates between 55-64 bpm during the exam. Left Ventricle: The left ventricle is normal in size. Left ventricular wall thickness is borderline increased. The ejection fraction is estimated to be 60-65%. Grade I diastolic dysfunction with normal left atrial pressure. Right Ventricle: The right ventricle is not well visualized. Grossly normal systolic function. Atria: The left atrium is mildly dilated. Right atrial size is normal. There is no Doppler evidence for an interatrial shunt. Mitral Valve: There is a flat closure plane of the the mitral valve leaflets. There is trace mitral regurgitation. Aortic Valve: The aortic valve is trileaflet. The aortic valve is mildly calcified. There is mild aortic valve sclerosis. The peak aortic velocity is 1.92 m/sec. The aortic valve mean gradient is 8 mmHg. The calculated aortic valve area is 1.3 cm2. There is trace aortic regurgitation. Tricuspid Valve: The tricuspid valve leaflets are thin and pliable. No tricuspid regurgitation. Pulmonary artery pressures cannot be estimated because of the lack of a measurable TR jet velocity but the IVC suggests a CVP of around 3 mmHg. Pulmonic Valve: The pulmonic valve leaflets are thin and pliable; valve motion is normal. There is trace pulmonic regurgitation. Great Vessels: The aortic root is normal size. The ascending aorta is normal in size. The IVC is of normal diameter and collapses greater than 50% with a sniff. This suggests a low right atrial pressure of 3 mm Hg. Pericardium/ Pleura There is no pericardial effusion. There is no pleural effusion. MMode/2D Measurements & Calculations LVIDd: 5.0 cm LVOT diam: 2.0 cm LVIDs: 3.7 cm Ao root diam: 3.4 cm FS: 26.9 % asc Aorta Diam: 3.5 cm EPSS: 0.31 cm Ao Arch Diam (Prox Trans): 3.5 cm IVSd: 1.1 cm LVPWd: 0.92 cm LV guardado. diameter/BSA (cm/m^2): 2.4 LV sys. diameter/BSA (cm/m^2): 1.7 LA A2 area: 24.9 cm2 RA long axis: 5.8 cm LA A4 area: 22.3 cm2 RA area: 16.1 cm2 LA length (vol): 5.5 cm RA vol: 38.1 ml LA vol: 86.1 ml RA : 18.1 ml/m2 LA vol index: 40.9 ml/m2 IVC diam: 2.0 cm TAPSE: 2.3 cm Doppler Measurements & Calculations Ao V2 max: 192.7 cm/sec LVOT Max Haroon: 76.3 cm/sec Ao V2 mean: 136.9 cm/sec LV V1 max P.3 mmHg Ao max P.9 mmHg LV V1 VTI: 18.8 cm Ao mean P.3 mmHg CHELSY(I,D): 1.4 cm2 Ao V2 VTI: 45.1 cm CHELSY(V,D): 1.3 cm2 sev ratio: 0.42 CHELSY indexed to BSA (cm^2/m^2): 0.65 MV E max haroon: 78.8 cm/sec PA V2 max: 158.6 cm/sec MV A max haroon: 52.3 cm/sec PA V2 mean: 103.5 cm/sec MV E/A: 1.5 PA mean P.9 mmHg Med Peak E' Haroon: 8.3 cm/sec PA pr(Accel): 25.9 mmHg E/E' med: 9.4 Lat Peak E' Haroon: 9.4 cm/sec E/E' lat: 8.4 E/e' average: 8.9 MV dec time: 0.19 sec SV(LVOT): 62.0 ml Reading Physician:09:47 AM mri brain: Radiologist's Impression: [address] [address] Magnetic Resonance Report Signed Patient: Cas Mark MR#: [id number] : 1945 Acct:[id number] Age/Sex: 79 / M Date of Service: 08/31/24 Loc: ED Accession Number: [id number] Procedure: MR head/brain wo con Ordering Provider: Kailee Edmondson MD PROCEDURE: MR HEAD/BRAIN WO CON INDICATIONS: tia TECHNIQUE: Non-contrast axial T1 spin echo, axial T2 fast spin echo, sagittal and axial FLAIR, coronal T2 fast spin echo, axial gradient echo, axial diffusion and ADC through the brain. COMPARISON: [facility], CT, CT ANGIO HEAD AND NECK, 08/31/2024, 9:15. [facility], CT, CT HEAD/BRAIN WO CON, 08/31/2024, 9:15. FINDINGS: Image quality: Excellent. CSF spaces: Ventricles appear symmetric in size and shape. Basal cisterns are patent. No extra-axial fluid collections. Brain: No intracranial bleeds or mass effects. There is cerebral volume loss for age. There are age appropriate, trace periventricular and deep white matter chronic small vessel ischemic changes. Brainstem appears normal. Diffusion-weighted images show no acute infarct. No chronic ischemic insults. Normal intravascular flow voids are present. Skull and face: Calvarial bone marrow is normal in signal. Orbits are normal. Sinuses: Sinuses and mastoids are clear. IMPRESSION: Negative brain MRI for patient age. No acute intracranial process. Dictated by: Baltazar Burris M.D. on 08/31/2024 at 11:07 Approved by: Baltazar Burris M.D. on 08/31/2024 at 11:13 CT scan - head: My Impression: Independent reviewed CT head, no acute findings Radiologist's Impression: Radiology report indicated no acute abnormalities ECG Data Attestation: I personally reviewed and interpreted this ECG as follows: (Normal sinus rhythm at [address] segment changes left axis deviation normal intervals) MDM Narrative Medical decision making narrative: A 79-year-old male with a history of intermittent atrial fibrillation presently anticoagulated in in sinus rhythm also history of elevated cholesterol presenting with a brief episode of difficulty with word finding and confusion yesterday. He is concerned about a TIA. I counseled him that this may have been a TIA although I would not definitively say that I thought it was. We are going to obtain CT head and CT angio of the head and neck, I discussed the possibility of admission, patient does not wish to be admitted, he understands that admission would provide a more complete workup including time on a corporate trainer as well as evaluation by an internal medicine physician for risk factor modification. We will accomplish what we can of a TIA workup in the emergency department this morning. Patient was advised that risk of stroke after a TA is highest in the immediate. After the TIA. Emergency department evaluation including CT angio head and neck, MRI and echocardiogram is reassuring. Patient is already on a statin and already on full anticoagulation for atrial fibrillation. I am not convinced this was a TIA, this was a very brief episode and otherwise he has been asymptomatic and quite stable appearing. Recommended primary care follow up at this point. Discharge Plan Departure Patient Disposition: Home Clinical Impression: Acute confusion Activity Restrictions/Additional Instructions: Emergency department workup today is reassuring. I think it is unlikely your episode with a transient ischemic attack. I think it is safe to continue previous medications. As we discussed, I do recommend getting a follow up ultrasound study of your carotid arteries. The CT scan is quite reassuring we reviewed it with her vascular surgeon from the [facility]. Continue Lipitor and Eliquis. If you are having recurrent symptoms recheck in the emergency department, if you have stroke-like symptoms such as one-sided weakness acute persistent difficulty with balance or speech, call 911. Follow up soon with her primary care provider. Prescriptions: No Action atorvastatin [Lipitor] 20 MG tablet 20 mg PO HS Qty: 90 1RF Eliquis 5 mg tablet 5 mg PO BID Referrals: Paige Lehman ARNP [Primary Care Provider, Medical] Stand Alone Forms: Patient Portal/API
[2024-08-31 08:22] LABS: Add Manual Diff / Slide Review NO; Hematocrit 43.0 % (41-53); Hemoglobin 14.8 g/dL (13.5-17.5); Lymphocytes Absolute Auto 1900 /uL (1100-4500); Mean Corpuscular HGB Conc 34.5 % (30-36); Mean Corpuscular Hemoglobin 28.7 PG (26-34); Mean Corpuscular Volume 83.4 fL (80-100); Platelet Count 241 X10^3/uL (150-400)
[2024-08-31 08:24] LABS: INR 1.2 (0.9-1.3); Prothrombin Time 14.1 SECONDS (9.4-12.5)
[2024-08-31 08:27] LABS: PTT Partial Thromboplastin Tim 34 SECONDS (25.1-36.5)
[2024-08-31 08:29] LABS: Alanine Aminotransferase 21 IU/L (<50); Albumin 4.4 g/dL (3.5-5.0); Albumin Globulin Ratio 1.9 (1.0-2.8); Alkaline Phosphatase 93 U/L (38-126); Blood Urea Nitrogen 11 mg/dL (9-20); Calcium 8.9 mg/dL (8.4-10.2); Carbon Dioxide 25 mmol/L (22-32); Chloride 106 mmol/L (98-107); Creatine Kinase 177 U/L (55-170); Estimated Glomerular Filt Rate > 60 mL/min (>60); Ethanol (ETOH) < 10 mg/dL (<10); Globulin 2.3 g/dL (1.7-4.1); Glucose 110 mg/dL (70-99); HEMOLYSIS 16 (0-50); Potassium 4.1 mmol/L (3.4-5.1); Sodium 138 mmol/L (137-145); Total Protein 6.7 g/dL (6.3-8.2)
[2024-08-31 08:40] LABS: Troponin I < 0.012 ng/mL (0.01-0.034)
[2024-08-31 09:05] LABS: COVID19 -Nasal RAPID Negative (Negative)
[2024-08-31 09:17] LABS: UR Morphine/Opiate cutoff 300 Negative (Negative); Ur Specific Gravity Normal (Normal); Urine MDMA Negative (Negative); Urine Methamphetamines Negative (Negative); Urine Tetrahydrocannabinol Negative (Negative); Urine Tricyclic Antidepressant Negative (Negative)
--- NOTE | 2024-08-31 09:53 | DI.MRI.S_ITS ---
PROCEDURE: MR HEAD/BRAIN WO CON INDICATIONS: tia TECHNIQUE: Non-contrast axial T1 spin echo, axial T2 fast spin echo, sagittal and axial FLAIR, coronal T2 fast spin echo, axial gradient echo, axial diffusion and ADC through the brain. COMPARISON: [facility], CT, CT ANGIO HEAD AND NECK, 08/31/2024, 9:15. [facility], CT, CT HEAD/BRAIN WO CON, 08/31/2024, 9:15. FINDINGS: Image quality: Excellent. CSF spaces: Ventricles appear symmetric in size and shape. Basal cisterns are patent. No extra-axial fluid collections. Brain: No intracranial bleeds or mass effects. There is cerebral volume loss for age. There are age appropriate, trace periventricular and deep white matter chronic small vessel ischemic changes. Brainstem appears normal. Diffusion-weighted images show no acute infarct. No chronic ischemic insults. Normal intravascular flow voids are present. Skull and face: Calvarial bone marrow is normal in signal. Orbits are normal. Sinuses: Sinuses and mastoids are clear. IMPRESSION: Negative brain MRI for patient age. No acute intracranial process. Dictated by: Baltazar Burris M.D. on 08/31/2024 at 11:07 Approved by: Baltazar Burris M.D. on 08/31/2024 at 11:13
--- NOTE | 2024-08-31 10:35 | PC.NURSE ---
Pt reports yesterday while in car with son he had less than 1 min of expressive aphasia and word finding, which resolved and has not had an episode since. AOx4 and speech is clear w/o deficits at this time. Ambulatory. Is already on Eliquis treatment for afib.
== END 2024-08-31 16:57 | disposition home or self-care (01) ==
PROVIDERS: Emergency Provider Emergency Medicine; PCP Nurse Practitioner Family
DX: R41.0 Disorientation, unspecified (principal); Z79.01 Long term (current) use of anticoagulants
CPT/HCPCS: 36415; 70450; 70496; 70498; 70551; 80053; 80305; 80320; 81003; 82550; 82962; 84484; 85025; 85610; 85730; 87635; 93005; 93306; 99284; Q9967

== ENCOUNTER → 2024-09-13 13:45 | Outpatient (CLI) | payer MEDICARE, OTHER, SELFPAY ==
--- NOTE | 2024-09-13 13:48 | DI.US.S_ITS ---
PROCEDURE: US CAROTID DOPPLER BI INDICATIONS: TRANSIENT ISCHMIAC ATTACK TECHNIQUE: Color and pulse Doppler interrogation was performed of both carotid systems, with image documentation and velocity measurements. COMPARISON: [facility], MR, MR HEAD/BRAIN WO CON, 08/31/2024, 10:02. [facility], CT, CT ANGIO HEAD AND NECK, 08/31/2024, 9:15. FINDINGS: Stenosis calculations are based on SRU (Society of Radiologists in Ultrasound) criteria. The flow velocities and the arterial waveforms are normal within both carotid arterial systems. Atherosclerotic plaque is seen on both sides. The estimated degree of internal carotid artery stenosis is less than 50%. Antegrade flow is confirmed within both vertebral arteries. The small outpouching seen along the left lateral carotid bifurcation region is not seen on these ultrasound images. IMPRESSION: No hemodynamically significant stenosis is seen. Atherosclerotic plaque is noted bilaterally. On these ultrasound images, the previously seen small outpouching along the lateral aspect of the left carotid bifurcation region cannot be seen. Dictated by: Charles Gonzales M.D. on 09/13/2024 at 16:06 Approved by: Charles Gonzales M.D. on 09/13/2024 at 16:09
== END ==
PROVIDERS: PCP Nurse Practitioner Family; Referring Provider Family Medicine; Visit Provider Family Medicine
DX: G45.9 Transient cerebral ischemic attack, unspecified (principal)
CPT/HCPCS: 93880